=== PATIENT | female | born 1970 ===

== ENCOUNTER 2017-02-25 22:44 | Emergency (ER) | payer OTHER ==
[2017-02-25 23:21] VITALS: O2SAT 98
[2017-02-25] MEDS ORDERED: Sodium Chloride 0.9% 1,000 ML IV ONE (23:36)
[2017-02-25] MEDS ORDERED: Sodium Chloride 0.9% 1,000 ML ONE (23:52)
[2017-02-25 23:54] LABS: BASO % 0.5 % (0.0-2.0); EOS # 0.2 K/uL (0.0-0.7); EOS % 1.6 % (0.0-4.0); HEMOGLOBIN 12.5 g/dL (11.0-16.0); LYMPH # 3.4 K/uL (1.0-4.3); LYMPH % 35.4 % (20.0-40.0); MEAN CELL VOLUME 90.4 fL (81.0-99.0); MEAN CORPUSCULAR HEMOGLOBIN 30.8 pg (27.0-31.0); MEAN CORPUSCULAR HGB CONC 34.1 g/dL (33.0-37.0); MEAN PLATELET VOLUME 7.9 fL (7.2-11.7); MONO # 0.9 K/uL (0.0-0.8); MONO % 8.8 % (0.0-10.0); NEUT # 5.2 K/uL (1.8-7.0); NEUT % 53.7 % (50.0-75.0); NRBC % 0.1 % (0.0-2.0); RBC 4.05 Mil/uL (3.80-5.20); RED CELL DISTRIBUTION WIDTH 12.9 % (11.5-14.5); WHITE BLOOD COUNT 9.7 K/uL (4.8-10.8)
--- NOTE | 2017-02-25 23:59 | C.PDOC ---
History Of Present Illness 46 year old female presents to the ED with complaints of dizziness, vomiting, and nausea beginning last night. Patient states she has had back pain for a week and went to her PMD and began to take ibuprofen for the pain. She notes having two episodes of vomiting, one in the ED and one at home. Patient denies any diarrhea, fever, chills, or other medical problems. Time Seen by Provider: 02/25/17 23:31 Chief Complaint (Nursing): GI Problem History Per: Patient History/Exam Limitations: no limitations Onset/Duration Of Symptoms: Days (since last night ) Current Symptoms Are (Timing): Still Present Quality Of Discomfort: "Pain" Associated Symptoms: Nausea, Vomiting, Back Pain. denies: Fever, Chills, Diarrhea Recent travel outside of the [place]: No Abnormal Vaginal Bleeding: No Past Medical History Reviewed: Historical Data, Nursing Documentation, Vital Signs Vital Signs: Last Vital Signs Temp 97.7 F 02/26/17 01:32 Pulse 59 L 02/26/17 01:32 Resp 20 02/26/17 01:32 BP 103/64 02/26/17 01:32 Pulse Ox 98 02/26/17 01:35 Family History: States: Unknown Family Hx - Social History Hx Alcohol Use: No Hx Substance Use: No Review Of Systems Constitutional: Negative for: Fever, Chills Cardiovascular: Negative for: Chest Pain, Palpitations Respiratory: Negative for: Cough, Shortness of Breath Gastrointestinal: Positive for: Nausea, Vomiting. Negative for: Abdominal Pain , Diarrhea Genitourinary: Negative for: Dysuria Musculoskeletal: Positive for: Back Pain Physical Exam - Physical Exam Appears: Non-toxic, No Acute Distress Skin: Warm, Dry Eye(s): right: Normal Inspection, left: Other (injected conjunctiva patient stated is chronic ) Oral Mucosa: Moist Neck: Supple Chest: Symmetrical, No Deformity Cardiovascular: Rhythm Regular Respiratory: No Rales, No Rhonchi, No Stridor, No Wheezing Gastrointestinal/Abdominal: Soft, Tenderness (minimal epigastric tenderness ), No Distention, No Guarding, No Rebound Extremity: Normal ROM, No Tenderness Neurological/Psych: Oriented x3 ED Course And Treatment - Laboratory Results Result Diagrams: 02/25/17 23:51 02/25/17 23:51 O2 Sat by Pulse Oximetry: 98 (room air ) Medical Decision Making Medical Decision Making: Patient was given Pepcid and Zofran. Disposition Counseled Patient/Family Regarding: Studies Performed, Diagnosis, Need For Followup, Rx Given - Disposition Referrals: [facility] [Outside] Disposition: HOME/ ROUTINE Disposition Time: 01:15 Condition: STABLE Prescriptions: Ondansetron [Zofran Odt] 1 odt PO BID PRN #6 odt PRN Reason: .nausea vomiting Instructions: Acute Nausea and Vomiting (ED) Forms: Gen Discharge Inst [place], Work Excuse - POA Present On Arrival: None - Clinical Impression Clinical Impression: Gastritis - Scribe Statement The provider has reviewed the documentation as recorded by the Scribe Rita Carrasco All medical record entries made by the Mehranibe were at my direction and personally dictated by me. I have reviewed the chart and agree that the record accurately reflects my personal performance of the history, physical exam, medical decision making, and the department course for this patient. I have also personally directed, reviewed, and agree with the discharge instructions and disposition.
[2017-02-26 00:04] LABS: GFR AFRICAN-AMERICAN > 60; GFR NON-AFRICAN AMERICAN 60
[2017-02-26 00:05] LABS: BLOOD UREA NITROGEN 17 mg/dL (7-17); CALCIUM 8.7 mg/dl (8.6-10.4)
[2017-02-26 00:26] LABS: SQUAMOUS EPITHIAL 2 /hpf (0-5); URINE BILIRUBIN NEGATIVE (NEGATIVE); URINE BLOOD NEGATIVE (NEGATIVE); URINE CLARITY Clear (Clear); URINE COLOR Yellow (YELLOW); URINE GLUCOSE (UA) NORMAL (Normal); URINE LEUKOCYTE ESTERASE TRACE Leu/uL (Negative); URINE NITRATE NEGATIVE (NEGATIVE); URINE PROTEIN NEGATIVE (NEGATIVE); URINE UROBILINOGEN NORMAL mg/dL (0.2-1.0)
[2017-02-26 00:27] LABS: HCG,QUALITATIVE URINE NEGATIVE (NEGATIVE)
[2017-02-26 01:33] VITALS: BP 103/64; PULSE 59; TEMP 97.7
[2017-02-26 01:34] VITALS: RESP 20
== END 2017-02-26 01:36 | disposition home or self-care (01) ==
LOC: C.ER 22:44
DX: K29.70 Gastritis, unspecified, without bleeding (principal)
CPT/HCPCS: 80048; 81001; 84703; 85025; 96361; 96374; 96375; 99284; J2405; J7040